=== PATIENT | female | born 1945 | race Caucasian/White ===

== ENCOUNTER → 2018-12-31 | Outpatient (CLI) | payer MEDICARE, OTHER ==
[~2018-12-31] MED LIST: AMLO10TA8 PO; ASPI-496 PO; BIOTIN PO; CHOL100014 PO; DIPH25CA61 PO; DOCU-131 PO; GARLIC PO; LACT1CAP35 PO; LEVO750T26 PO; LORA0.5T PO; LOSA50TA14 PO; MAGNESIUM DR64 MG PO; MULT-6 PO; NICO-486 TD; OMNIPAQUE 350 MG/ML, 100ML BOTTLE ONE; PRAV40TA2 PO; TEMA30CA PO; VITAMIN B12 PO; ZINC50TA3 PO
== END | disposition home or self-care (01) ==
LOC: RAD 11:16
PROVIDERS: ATTEND Surgery
DX: I70.208 Unspecified atherosclerosis of native arteries of extremities, other extremity (principal); I77.1 Stricture of artery
CPT/HCPCS: 70498; Q9967